=== PATIENT | male | born 1985 | race Two or more races ===

== ENCOUNTER 2022-06-01 21:19 | Emergency (ER) | payer OTHER ==
[2022-06-01 21:38] LABS: HEMOGLOBIN 15.8 gm/dl (14.0-17.5); RED BLOOD COUNT 5.06 M/UL (4.20-5.50); WHITE BLOOD COUNT 11.3 K/UL (4.5-11.0)
[2022-06-01 22:35] LABS: BUN/CREATININE RATIO 15 (0-10)
[2022-06-02] MEDS ORDERED: AUGMENTIN 500-500 MG PO (00:48)
== END 2022-06-02 01:08 | disposition home or self-care (01) ==
LOC: ER1 21:19
PROVIDERS: Emergency Medicine
DX: S01.01XA Laceration without foreign body of scalp, initial encounter (principal); Z23 Encounter for immunization; V86.99XA Unspecified occupant of other special all-terrain or other off-road motor vehicle injured in nontraffic accident, initial encounter
CPT/HCPCS: 12004; 36415; 70450; 70486; 71045; 72125; 72170; 80053; 83605; 85025; 85610; 85730; 86850; 86900; 86901; 90471; 90715; 93005; 99284; G0480